=== PATIENT | female | born 1960 | race Native Hawaiian/Other Pacific Islander ===

== ENCOUNTER 2016-12-04 12:05 | Emergency (ER) | payer MEDICAID ==
[2016-12-04 12:21] VITALS: BP 136/71
--- NOTE | 2016-12-04 12:21 | Emergency Department Report ---
Chief Complaint: Fall Stated Complaint: FELL/CHEST PAIN Time Seen by Provider: 12/04/16 12:17 - HPI History of Present Illness: PT states she was walking in the [employer] parking lot and she fell. PT states she landed on her R side. R knee and R chest pain. - ROS Review of Systems: - syncope - cp prior to fall - Exam Physical Exam: pt tearful in triage abd soft and not tender pt ambulatory MSE screening note: Focused history and physical exam performed. Due to findings the following was ordered: xrs ED Disposition for MSE Condition: Stable
[2016-12-04] MEDS ORDERED: TORADOL IM ONE (14:13)
--- NOTE | 2016-12-04 14:34 | XRay Report ---
Right knee 3 views: History: Pain status post fall. Findings: Minimal narrowing of medial and patellofemoral compartment knee joint. Sclerotic articular surfaces with early degenerative changes. There is bony projection identified at the medial femoral condyle probably suggestive of scar or small exostosis. No soft tissue calcification. Impression: Mild arthritic changes as described.
--- NOTE | 2016-12-04 14:36 | XRay Report ---
Chest with right ribs: History: Pain, status post fall. History of breast surgery. Findings: No lytic or blastic lesion or fracture identified right ribs. No acute consolidation, pneumothorax or pleural effusion. Impression: No evidence of fracture. No acute lung changes.
--- NOTE | 2016-12-04 15:16 | XRay Report ---
RIGHT SHOULDER: Trauma, pain Routine views demonstrate normal bony and soft tissue structures with normal joint alignment of the shoulder. IMPRESSION: Normal study.
--- NOTE | 2016-12-04 15:23 | XRay Report ---
RIGHT HUMERUS: Trauma, pain. AP and lateral views of the humerus demonstrate normal mineralization and contours for this patient's age. No destructive changes are noted and the adjacent soft tissues are normal. IMPRESSION: Normal right humerus.
--- NOTE | 2016-12-04 17:31 | Emergency Department Report ---
Entered by GLO LION, acting as scribe for YINKA COHEN NP. ED Fall HPI - General Chief Complaint: Fall Stated Complaint: FELL/CHEST PAIN Time Seen by Provider: 12/04/16 12:17 Source: patient Mode of arrival: Ambulatory - History of Present Illness Initial Comments: This is a 56 y/o female, nontoxic, well nourished in appearance, no acute signs of distress with no significant PMHx presents with c/o a fall injury that began 2 days ago. Patient states she slipped and fell outside of [facility] and landed on her right shoulder and right breast region. In the ED, patient c/o right rib pain, right knee pain, and right shoulder pain, but she denies head injury, LOC , fever, chills, chest pain, SOB, VELOZ or dizziness, numbness, tingling. Rates pain a 9/10 in severity, which she describes as aching in quality. Notes she had silicon implants placed 4 months ago. Patient denies that the implant deflated or "popped" upon impact. NKDA. 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 denies: headache, neck pain, numbness, weakness, chest paint, shortness of breath, abdominal pain, hematuria, lightheaded, vertigo, confusion - Related Data Previous Rx's Medication Instructions Recorded Last Taken Type Cyclobenzaprine HCl [Flexeril 5 MG 5 mg PO TID #15 tab 12/04/16 Unknown Rx TAB] Ibuprofen [Motrin 600 MG tab] 600 mg PO Q8H PRN #30 tablet 12/04/16 Unknown Rx Allergies Allergy/AdvReac Type Severity Reaction Status Date / Time No Known Allergies Allergy Verified 12/04/16 12:23 ED Review of Systems Comment: All other systems reviewed and negative Constitutional: denies: chills, fever Eyes: denies: eye pain, eye discharge, vision change ENT: denies: ear pain, throat pain Respiratory: denies: cough, orthopnea, shortness of breath, SOB with exertion, SOB at rest, stridor, wheezing Cardiovascular: denies: chest pain, palpitations, dyspnea on exertion, orthopnea , edema, syncope, paroxysmal nocturnal dyspnea Endocrine: no symptoms reported Gastrointestinal: denies: abdominal pain, nausea, vomiting, diarrhea Genitourinary: denies: urgency, dysuria, discharge Musculoskeletal: arthralgia (right sided rib pain, right shoulder pain, and right knee pain). denies: back pain, joint swelling, myalgia Skin: denies: rash, lesions Neurological: denies: headache, weakness, numbness, paresthesias, confusion, vertigo Psychiatric: denies: anxiety, depression Hematological/Lymphatic: denies: easy bleeding, easy bruising ED Past Medical Hx - Past Medical History Previous Medical History?: No - Surgical History Past Surgical History?: Yes Additional Surgical History: breast - Social History Smoking Status: Never Smoker Substance Use Type: None - Medications Home Medications: Home Medications Medication Instructions Recorded Confirmed Last Taken Type Cyclobenzaprine HCl [Flexeril 5 MG 5 mg PO TID #15 tab 12/04/16 Unknown Rx TAB] Ibuprofen [Motrin 600 MG tab] 600 mg PO Q8H PRN #30 tablet 12/04/16 Unknown Rx ED Physical Exam - General Limitations: No Limitations General appearance: alert, in no apparent distress - Head Head exam: Present: atraumatic, normocephalic - Eye Eye exam: Present: normal appearance, PERRL, EOMI. Absent: scleral icterus, conjunctival injection, nystagmus, periorbital swelling, periorbital tenderness Pupils: Present: normal accommodation - ENT ENT exam: Present: normal exam, normal orophraynx, mucous membranes moist, TM's normal bilaterally, normal external ear exam - Neck Neck exam: Present: normal inspection, full ROM. Absent: tenderness, meningismus, lymphadenopathy, thyromegaly - Respiratory Respiratory exam: Present: normal lung sounds bilaterally. Absent: respiratory distress, wheezes, rales, rhonchi, stridor, chest wall tenderness, accessory muscle use, decreased breath sounds, prolonged expiratory - Cardiovascular Cardiovascular Exam: Present: regular rate, normal rhythm, normal heart sounds. Absent: systolic murmur, diastolic murmur, rubs, gallop - GI/Abdominal GI/Abdominal exam: Present: soft, normal bowel sounds. Absent: distended, tenderness, guarding, rebound, rigid - Extremities Exam Extremities exam: Present: full ROM (limited and painful ROM due to right shoulder pain), normal capillary refill. Absent: normal inspection, tenderness , pedal edema, joint swelling, calf tenderness - Expanded Upper Extremity Exam Right General: Present: normal inspection. Absent: laceration, abrasion, nail injury (#), foreign body, amputation, avulsion Shoulder Exam: Present: full ROM (limited and painful ROM due to right shoulder pain), tenderness (deltoid region). Absent: normal inspection, swelling, abrasion, laceration, ecchymosis, deformity, crepidus, dislocation, erythema, tenderness over AC joint Upper Arm exam: Present: normal inspection, full ROM. Absent: tenderness, swelling, abrasion, laceration, ecchymosis, deformity, crepidus, dislocation, erythema Elbow exam: Present: normal inspection, full ROM. Absent: tenderness, swelling , abrasion, laceration, ecchymosis, deformity, crepidus, dislocation, erythema, effusion, pain w/ pronation/supination, tenderness over radial head Forearm Wrist exam: Present: normal inspection, full ROM. Absent: tenderness, swelling, abrasion, laceration, ecchymosis, deformity, crepidus, dislocation, erythema, tenderness over anatomical snuff box, pain with axial thumb loading Hand Wrist exam: Present: normal inspection, full ROM. Absent: tenderness, swelling, abrasion, laceration, ecchymosis, deformity, crepidus, dislocation, erythema, amputation, nail avulsion, subungual hematoma Neuro motor exam: Present: wrist extension intact, thumb opposition intact, thumb IP flexion intact, thumb adduction intact, fingers 2-5 abduction intact Neurosensory exam: Present: 2-point discrimination, radial nerve intact, ulnar nerve intact, median nerve intact Vascular: Present: normal capillary refill, radial pulse (2+), brachial pulse, ulnar pulse. Absent: vascular compromise, Pallo - Expanded Lower Extremity Exam Right Hip exam: Present: normal inspection, full ROM, external rotation, internal rotation, pelvic stability. Absent: tenderness, swelling, abrasion, laceration , ecchymosis, deformity, crepidus, dislocation, erythema, shortening Upper Leg exam: Present: normal inspection, full ROM. Absent: tenderness, swelling, abrasion, laceration, ecchymosis, deformity, crepidus, dislocation, erythema Knee exam: Present: full ROM, abrasion (healing abrasion with crusting. No pus or drainage noted.), full knee extension. Absent: normal inspection, tenderness , swelling, laceration, ecchymosis, deformity, crepidus, dislocation, erythema, effusion, pain w/ pronation/supination, posterior draw sign, pain/laxity with valgus, pain/laxity with varus Lower Leg exam: Present: normal inspection, full ROM. Absent: tenderness, swelling, abrasion, laceration, ecchymosis, deformity, crepidus, dislocation, erythema, palpable cord, Uzma's sign Ankle exam: Present: normal inspection, full ROM Foot/Toe exam: Present: normal inspection, full ROM Neuro vascular tendon exam: Present: no vascular compromise. Absent: pulse deficit, abnormal cap refill, motor deficit, sensory deficit, tendon deficit, extremity cold to touch, pallor, abnormal 2-point discrimination, decreased fine /light touch, foot drop, peroneal nerve deficit, significant pain with passive ROM of distal joint Gait: Positive: observed and limited by pain - Back Exam Back exam: Present: normal inspection, full ROM, tenderness (lumbar paraspinal tenderness), paraspinal tenderness (lumbar). Absent: CVA tenderness (R), CVA tenderness (L), muscle spasm, vertebral tenderness, rash noted - Neurological Exam Neurological exam: Present: alert, oriented X3, CN II-XII intact, normal gait ( limited by right knee pain), reflexes normal. Absent: motor sensory deficit - Psychiatric Psychiatric exam: Present: normal affect, normal mood - Skin Skin exam: Present: warm, dry, intact. Absent: rash - Other Other exam information: Chest/Ribcage: non-deflated implant to right breast. Right sided ribcage tenderness with no eechymosis or deformity present ED Course Vital Signs 12/04/16 12:18 Temperature 97.7 F Pulse Rate 83 Respiratory 16 Rate Blood Pressure 136/71 O2 Sat by Pulse 98 Oximetry - Reevaluation(s) Reevaluation #1: 12/04/16 14:11 Patient is able to speak in full sentences with no signs of distress noted. ED Medical Decision Making - Medical Decision Making ED course; this is a 56-year-old female that presents with contusion to multiple region status post fall 1- patient was examined myself. Patient received x-ray of rib, humerus, shoulder, and knee with all negative findings of any fractures or abnormalities. Dictated by radiologist. Patient was notified of x-ray findings with no further questions noted by the patient. 2- patient received Toradol 30 mg IM and ED. 3- patient was instructed to rest, elevate, and ice shoulder and knee. 4- patient received ibuprofen and Flexeril and was instructed not operate heavy machinery while taking Flexeril due to sedation 5- patient also notified to follow-up with her primary care doctor in 3-5 days or symptoms such as chest pain, shortness of breath, nausea, vomiting, headache , stiff neck or any other abnormal/worsening symptoms return to emergency room as soon as possible 6- At time time of discharge, the patient does not seem toxic or ill in appearance. No acute signs of distress noted. Patient agrees to discharge treatment plan of care. No further questions noted by the patient. ED Disposition Clinical Impression: Contusion Qualifiers: Encounter type: initial encounter Contusion area: shoulder Laterality: right Qualified Code(s): S40.011A - Contusion of right shoulder, initial encounter Disposition: - TO HOME OR SELFCARE Is pt being admited?: No Does the pt Need Aspirin: No Condition: Stable Instructions: Knee Pain (ED), Contusion in Adults (ED), Ibuprofen (By mouth), Cyclobenzaprine (By mouth) Additional Instructions: follow-up with your primary care doctor in 3-5 days or symptoms such as chest pain, shortness of breath, nausea, vomiting, headache, stiff neck or any other abnormal/worsening symptoms return to emergency room as soon as possible Take ibuprofen and Flexeril as prescribed. Do not operate heavy machinery while taking Flexeril due to sedation Prescriptions: Cyclobenzaprine HCl [Flexeril 5 MG TAB] 5 mg PO TID #15 tab Ibuprofen [Motrin 600 MG tab] 600 mg PO Q8H PRN #30 tablet PRN Reason: Pain Referrals: PRIMARY CARE, [Primary Care Provider] - 3-5 Days ANTONI VALDERRAMA MD [Staff Physician] - 3-5 Days [facility] [Outside] - 3-5 Days [facility] [Outside] - 3-5 Days Forms: Work/School Release Form(ED) This documentation as recorded by the AMISHA pickett JASMINE,accurately reflects the service I personally performed and the decisions made by me,YINKA COHEN, DONY.
== END 2016-12-04 15:41 | disposition home or self-care (01) ==
LOC: ED 12:05
DX: S40.011A Contusion of right shoulder, initial encounter (principal); W01.0XXA Fall on same level from slipping, tripping and stumbling without subsequent striking against object, initial encounter; Y93.89 Activity, other specified; Y99.8 Other external cause status; Y92.59 Other trade areas as the place of occurrence of the external cause
CPT/HCPCS: 71101; 73030; 73060; 73562; 93005; 93010; 96372; 99284; J1885

== ENCOUNTER 2021-12-17 10:59 | Emergency (ER) | payer MEDICAID ==
[2021-12-17] MEDS ORDERED: SODIUM CHLORIDE 0.9% 1000 ML 1,000 ML IV ONE (12:26)
[2021-12-17 13:00] LABS: Basophils # (Auto) 0.1 K/mm3 (0.0-0.1); Basophils % (Auto) 0.9 % (0.0-1.8); Eosinophils # (Auto) 0.1 K/mm3 (0.0-0.4); Eosinophils % (Auto) 2.6 % (0.0-4.3); Hematocrit 38.5 % (30.3-42.9); Hemoglobin 12.3 gm/dl (10.1-14.3); Lymphocytes # (Auto) 1.2 K/mm3 (1.2-5.4); Mean Corpuscular HGB Conc 32 % (30-34); Mean Corpuscular Volume 87 fl (79-97); Monocytes # (Auto) 0.4 K/mm3 (0.0-0.8); Monocytes % (Auto) 7.4 % (0.0-7.3); Platelet Count 255 K/mm3 (140-440); Red Blood Count 4.45 M/mm3 (3.65-5.03); Red Cell Distribution Width 14.3 % (13.2-15.2)
--- NOTE | 2021-12-17 13:04 | Emergency Department Report ---
- General Chief complaint: Weakness Stated complaint: VAGINAL INFECTION/ITCHING Time Seen by Provider: 12/17/21 12:01 Source: patient Mode of arrival: Ambulatory Limitations: No Limitations - History of Present Illness Initial comments: 61-year-old female who presents with generalized weakness and muscle fatigue associated with vertigo. Patient reported that room is spinning around her. This is been going on for the last 3 days. No fever or chills reported. Patient is currently taking acyclovir for presumed diagnosis of herpes by her primary doctor about 1-1/2 weeks ago. No diarrhea but nausea without vomiting reported. Patient also denies chest pain, shortness of breath or palpitation. No other modifying or associated factors reported. - Related Data Previous Rx's Medication Instructions Recorded Last Taken Type Cyclobenzaprine HCl [Flexeril 5 MG 5 mg PO TID #15 tab 12/04/16 Unknown Rx TAB] Ibuprofen [Motrin 600 MG tab] 600 mg PO Q8H PRN #30 tablet 12/04/16 Unknown Rx Meclizine HCl [Antivert] 50 mg PO Q8H 7 Days #21 tab NS 12/17/21 Unknown Rx Allergies Allergy/AdvReac Type Severity Reaction Status Date / Time No Known Allergies Allergy Verified 12/04/16 12:23 ED Review of Systems ROS: Stated complaint: VAGINAL INFECTION/ITCHING Other details as noted in HPI Comment: All other systems reviewed and negative Constitutional: malaise, weakness. denies: chills, fever Musculoskeletal: myalgia ED Past Medical Hx - Surgical History Additional Surgical History: breast - Social History Smoking Status: Never Smoker Substance Use Type: None - Medications Home Medications: Home Medications Medication Instructions Recorded Confirmed Last Taken Type Cyclobenzaprine HCl [Flexeril 5 MG 5 mg PO TID #15 tab 12/04/16 Unknown Rx TAB] Ibuprofen [Motrin 600 MG tab] 600 mg PO Q8H PRN #30 tablet 12/04/16 Unknown Rx Meclizine HCl [Antivert] 50 mg PO Q8H 7 Days #21 tab NS 12/17/21 Unknown Rx ED Physical Exam - General Limitations: No Limitations General appearance: alert, in no apparent distress - Head Head exam: Present: normal inspection - Eye Eye exam: Present: normal appearance Pupils: Present: normal accommodation - ENT ENT exam: Present: normal exam, normal orophraynx, mucous membranes dry - Neck Neck exam: Present: normal inspection, full ROM. Absent: tenderness - Respiratory Respiratory exam: Present: normal lung sounds bilaterally. Absent: respiratory distress, accessory muscle use - Cardiovascular Cardiovascular Exam: Present: regular rate, normal rhythm, normal heart sounds - GI/Abdominal GI/Abdominal exam: Present: soft, normal bowel sounds. Absent: distended, tenderness - Extremities Exam Extremities exam: Present: normal inspection, full ROM, normal capillary refill. Absent: tenderness, pedal edema, joint swelling - Back Exam Back exam: Present: tenderness. Absent: CVA tenderness (R), CVA tenderness (L) - Neurological Exam Neurological exam: Present: alert, oriented X3 - Psychiatric Psychiatric exam: Present: normal affect, normal mood - Skin Skin exam: Present: warm, normal color ED Course Vital Signs 12/17/21 12/17/21 11:18 14:37 Temperature 98.4 F 98.1 F Pulse Rate 97 H Respiratory 18 17 Rate Blood Pressure 162/78 [Left] O2 Sat by Pulse 99 99 Oximetry ED Medical Decision Making - Lab Data Result diagrams: 12/17/21 12:33 12/17/21 12:23 - EKG Data -: EKG Interpreted by Oh EKG shows normal: sinus rhythm - EKG Data 12/17/21 13:05 Noted with normal sinus rhythm at a rate of [address] T wave abnormality in this abnormal ECG. - Radiology Data CT head noted with FINDINGS: BRAIN PARENCHYMA: No acute intracranial hemorrhage. No evidence of recent infarct. No mass effect or midline shift. Periventricular and subcortical white matter hypoattenuation, consistent with moderate chronic small vessel ischemic changes. VENTRICULAR SYSTEM/EXTRA-AXIAL SPACES: Age-related cerebral atrophy. Under ORBITS: Normal as visualized. SKELETAL SYSTEM/SOFT TISSUES: Normal bones and soft tissues. PARANASAL SINUSES/MASTOID AIR CELLS: Complete opacification of the right maxillary sinus with moderate mucosal thickening of the right ethmoid air cells. There is wall thickening of the right maxillary sinus, consistent with chronic sinusitis. ADDITIONAL FINDINGS: None. IMPRESSION: 1. No acute intracranial abnormality. 2. Right maxillary and right ethmoid chronic sinusitis. - Medical Decision Making Here with generalized weakness and fatigue with room spinning this is likely vertigo but differential could be and not limited to seizure, symptomatic anemia, myocardial infarction, pulmonary embolism, anxiety, CVA especially posterior stroke or thyroid abnormality--in order to rule those out I will go ahead and order routine cardiopulmonary work-up that include troponin, EKG, chest x-ray, BNP, CKMB, and CBC, CMP, Urinalysis and thyroid panel for any correctable infectious process or electrolyte abnormality as a cause. Will also order CT brain for any intracranial abnormality as mentioned above. In the meantime will give ivf ns 1L bolus for hydration as most are dehydrated in the hot weather anyway. CT head resulted FINDINGS: BRAIN PARENCHYMA: No acute intracranial hemorrhage. No evidence of recent infarct. No mass effect or midline shift. Periventricular and subcortical white matter hypoattenuation, consistent with moderate chronic small vessel ischemic changes. VENTRICULAR SYSTEM/EXTRA-AXIAL SPACES: Age-related cerebral atrophy. Under ORBITS: Normal as visualized. SKELETAL SYSTEM/SOFT TISSUES: Normal bones and soft tissues. PARANASAL SINUSES/MASTOID AIR CELLS: Complete opacification of the right maxillary sinus with moderate mucosal thickening of the right ethmoid air cells. There is wall thickening of the right maxillary sinus, consistent with chronic sinusitis. ADDITIONAL FINDINGS: None. IMPRESSION: 1. No acute intracranial abnormality. 2. Right maxillary and right ethmoid chronic sinusitis. Critical care attestation.: If time is entered above; I have spent that time in minutes in the direct care of this critically ill patient, excluding procedure time. ED Disposition Clinical Impression: Vertigo, Generalized weakness Disposition: 01 HOME / SELF CARE / HOMELESS Is pt being admited?: No Does the pt Need Aspirin: No Condition: Stable Instructions: How to Perform the Desiree Maneuver, Weakness, [id number], Dizziness, [id number] Additional Instructions: Please follow the above printed instruction to help your vertigo/dizziness Increase your daily fluid to help your hydration Call and follow up with your doctor in the next 3-5 days for progress Call or return to ED if your symptoms worsen Prescriptions: Meclizine HCl [Antivert] 50 mg PO Q8H 7 Days #21 tab NS Referrals: PONCHO FLANAGAN MD [Referring] - 3-5 Days Time of Disposition: 17:50
[2021-12-17 13:11] LABS: INR 0.89 (0.87-1.13); Partial Thromboplastin Time 31.3 Sec. (24.2-36.6)
[2021-12-17 13:19] LABS: Alanine Aminotransferase 17 units/L (7-56); Blood Urea Nitrogen 14 mg/dL (7-17); Calcium 9.7 mg/dL (8.4-10.2); Hemolysis Index 5
[2021-12-17 13:20] LABS: BUN/Creatinine Ratio 28
[2021-12-17 13:26] LABS: Free T4 (Free Thyroxine) 0.99 ng/dL (0.76-1.46)
--- NOTE | 2021-12-17 13:44 | Cat Scan Report ---
CT HEAD WITHOUT CONTRAST INDICATION / CLINICAL INFORMATION: stroke. TECHNIQUE: All CT scans at this location are performed using CT dose reduction for ALARA by means of automated exposure control. COMPARISON: None available. FINDINGS: BRAIN PARENCHYMA: No acute intracranial hemorrhage. No evidence of recent infarct. No mass effect or midline shift. Periventricular and subcortical white matter hypoattenuation, consistent with moderate chronic small vessel ischemic changes. VENTRICULAR SYSTEM/EXTRA-AXIAL SPACES: Age-related cerebral atrophy. Under ORBITS: Normal as visualized. SKELETAL SYSTEM/SOFT TISSUES: Normal bones and soft tissues. PARANASAL SINUSES/MASTOID AIR CELLS: Complete opacification of the right maxillary sinus with moderat e mucosal thickening of the right ethmoid air cells. There is wall thickening of the right maxillary sinus, consistent with chronic sinusitis. ADDITIONAL FINDINGS: None. IMPRESSION: 1. No acute intracranial abnormality. 2. Right maxillary and right ethmoid chronic sinusitis. Signer Name: Jerel Parker MD Signed: 12/17/2021 1:40 PM Workstation Name: [id number]
[2021-12-17 14:09] LABS: Color,Urine Yellow (Yellow)
[2021-12-17 14:10] LABS: Mucus,Urine FEW /HPF; RBC,Urine < 1.0 /HPF (0.0-6.0)
[2021-12-17 18:15] VITALS: BP 124/52
--- NOTE | 2021-12-20 13:49 | Electrocardiograph Report ---
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
== END 2021-12-17 18:20 | disposition home or self-care (01) ==
LOC: ED 10:59
DX: R53.1 Weakness (principal); R42 Dizziness and giddiness
CPT/HCPCS: 36415; 70450; 80053; 81001; 83880; 84439; 84443; 84484; 85025; 85610; 85730; 93005; 96360; 99284; J7030